=== PATIENT | female | born 1985 | race Caucasian/White ===

== ENCOUNTER 2016-03-24 01:43 | Emergency (ER) | payer OTHER ==
[~2016-03-24] VITALS: Ht 160 cm; Wt 68.0 kg
[~2016-03-24 01:43] MED LIST: ALBUTEROL0.09 MG/A1 INH; AZITHROMYCIN250 MG PO; CLONIDINE0.1 MG PO; DIFLUCAN150 MG PO; HYDROXYZINE50 MG PO; MEDROL DOSEPAK1 PAC PO; MEDROL4 MG PO; PAROXETINE40 MG PO; PROVENTIL0.09 MG/A1 INH; TESSALON PERLE100 MG PO; ZITHROMAX Z-PA250 M1 PO; ZOFRAN4 M1 SL
--- NOTE | 2016-03-24 02:01 | ED CARDIAC/CP/PALPITATIONS ---
History of Present Illness General Chief Complaint: Chest Pain Stated Complaint: CHEST PAIN Source: patient Exam Limitations: patientis sleeping during the history taking and physical exam Vital Signs & Intake/Output Vital Signs & Intake/Output Vital Signs Date Time Temp Pulse Resp B/P Pulse O2 O2 Flow FiO2 Ox Delivery Rate 03/24 212 97 Room Air 03/24 209 97.1 70 18 92/51 97 Room Air Allergies Coded Allergies: NO KNOWN ALLERGIES (01/10/14) Reconcile Medications Albuterol Sulfate (Albuterol Sulfate Hfa) 90 MCG HFA.AER.AD 2 PUFF INH Q4-6 PRN PRN SHORTNESS OF BREATH 90 MCG PER PUFF CLONIDINE HCL (Clonidine) 0.1 MG TABLET 0 PO SEE ADMIN CRITERIA PRN opiate withdrawal 1 tab Q4H x 2 days 1 tab Q6H x 2 days 1 tab Q8H x 2 days 1 tab Q12H x 2 days 1 tab Q24H x 2 days Hydroxyzine Hydrochloride (Hydroxyzine) 50 MG TAB 1 TAB PO Q6P PRN anxiety Ondansetron (Zofran Odt) 4 MG TAB.RAPDIS 1 ODT SL Q6P PRN NAUSEA PAROXETINE HCL (Paroxetine) 40 MG TABLET 1 TAB PO DAILY MENTAL HEALTH ( Reported) Triage Nurses Notes Reviewed? yes HPI: with PMH of Hep C, heroin and cocaine abuse presented to [facility] ED c/o chest pain that started 24 hours ago. Pain radiates to the both are. Patient is in quality. He reported that before the pain started she had a chest discomfort. Even though patient denies cough she was coughing during history taking. Patient denies nausea, vomiting, fever, chills, palpitation. Patient denies any drug use now days, she claims that she is clean and only use methadone as prescribed. However she looks so tired, sleepy, drowsy during history taking. ([facility]) Onset: 2 days Duration: day(s): Timing: recent history Quality/Severity: mild, aching Location: central Radiation: arms Activities at Onset: rest Prior Chest Pain/Card Workup: no prior chest pain, no prior cardiac workup Modifying Factors: Improves With: rest. Nitro Today/Relief: no nitro taken today Aspirin Today: no aspirin today Associated Symptoms: sleepiness LMP (ages 10-50): unknown : No Patient currently breastfeeds: No (YONY JESUS MD) Past History Travel History Traveled to [place] past 21 day No Medical History Neurological: NONE EENT: NONE Cardiovascular: NONE Respiratory: NONE Gastrointestinal: NONE Hepatic: hepatitis C Renal: NONE Musculoskeletal: NONE Psychiatric: NONE Endocrine: NONE Blood Disorders: NONE Cancer(s): NONE MARINATOR/Reproductive: bacterial vaginitis Psychosocial History Who do you live with Family What is your primary language Kazakh (JORDANA NIEVES MD) Medical History Any Pertinent Medical History? see below for history Surgical History Surgical History: non-contributory Psychosocial History Illicit Drug Use: cocaine, heroin, marijuana Family History Hx Contributory? No (YONY JESUS MD) Psychosocial History Daily Tobacco Use Amount/Type: => 5 Cigarettes daily ETOH Use: denies use Illicit Drug Use: PATIENT DENIES ACTIVE USE OF ILLICIT DRUGS (RADHA ESTRADA,LORNA Tsai) Review of Systems Review of Systems Constitutional: Denies: chills, diaphoresis, fever, weakness. Respiratory: Reports: wheezing. Denies: cough, short of breath. Cardiovascular: Reports: chest pain. Denies: orthopena, palpitations, peripheral edema, syncope. GI: Denies: abdominal pain, constipation, diarrhea, nausea, vomiting. Genitourinary: Denies: dysuria. (EZEQUIEL ESTRADA,IST[facility]) Review of Systems EENTM: Reports: no symptoms. Musculoskeletal: Reports: no symptoms. Skin: Reports: no symptoms. Neurological/Psychological: Reports: no symptoms. Hematologic/Endocrine: Reports: no symptoms. Immunologic/Allergic: Reports: no symptoms. All Other Systems: Reviewed and Negative (YONY JESUS MD) Physical Exam Physical Exam General Appearance: patient looks sleepy, cold, and drowsy, does not look in pain Head: atraumatic, normal appearance Eyes: Bilateral: normal appearance, PERRL, EOMI. 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 Skin: intact, normal color, warm/dry Lymphatic: no anterior cervical anton Core Measures ACS in differential dx? No Severe Sepsis Present: No Septic Shock Present: No (YONY JESUS MD) Progress Differential Diagnosis: drug abuse Plan of Care: Orders Procedure Date/time Status EKG 03/24 0145 Active Even though patient is complaining of chest pain, she seems comfortable and pain -free. Patient seems drowsy and sleepy however she denies any current drug abuse. Patient EKG did not show any ST elevation or depression or any other abnormalities suggestive of acute coronary syndrome. She has mild wheezing on examination and was coughing during history taking however the x-ray was negative for any acute pathology. Patient will be observed in the ED, she will be discharge once she looks awake and stable. ([facility]) Diagnostic Imaging: Viewed by Me: Radiology Read. Discussed w/RAD: Radiology Read. CXR Impression: no acute abnormality, no infiltrates, normal size heart Initial ED EKG: normal axis, normal intervals, normal p-waves, normal QRS complex, normal sinus rhythm, no ST T wave changes Rhythm Strip: normal sinus rhythm Hand-Off Endorsed To: LORNA GARCIA MD Endorsed Time: 655 Pending: other (sobriety) (YONY JESUS MD) Comments: 03/24/2016 7:31:55 AM upon my arrival to the room Shala was sleeping comfortably. She awoke easily and complains only of "whole body pain" that began yesterday while sitting in a chair at her house. Physical examination is unremarkable including clear lungs, normal heart tones and nontender abdomen. I see no peripheral edema or rashes. Deep tendon reflexes are intact in all extremities. Patient seems to move easily about the stretcher. Regarding the patient's chest pain presentation, chest x-ray reveals no infiltrates or pneumothorax. Patient's EKG shows no acute ischemic changes to suggest acute coronary syndrome. Regarding her "whole body pain", the etiology of this is somewhat unclear at this point but I feel the patient is stable for outpatient management via her primary care physician. (LORNA GARCIA MD) Departure Departure Condition: Stable Referrals: PATIENT HAS NO PRIMARY CARE DR (PCP/Family) ([facility]) Departure Time of Disposition: 652 Disposition: HOME OR SELF CARE Clinical Impression Primary Impression: Chest wall pain Secondary Impressions: Substance abuse Departure Forms: General Discharge Information Resident Co-Sign Statement Statement: ED Attending supervision documentation- x I saw and evaluated the patient. I have also reviewed all the pertinent lab results and diagnostic results. I agree with the findings and the plan of care as documented in the Resident's documentation. [] I have reviewed the ED Record and agree with the Resident's documentation. [] Additions or exceptions (if any) to the Resident's note and plan are summarized below: [] (YONY JESUS MD) Departure Additional Instructions: Follow-up with your primary care physician this week. Continue your current medications. Return if any concerns or sudden worsening. (LORNA GARCIA MD) Critical Care Note Critical Care Note Critical Care Time: non-applicable (YONY JESUS MD)
--- NOTE | 2016-03-24 03:18 | RADIOLOGY REPORT ---
EXAMINATION: XR PORTABLE CHEST CLINICAL INFORMATION: Chest pain and wheezing. COMPARISON: 04/08/2014 TECHNIQUE: Portable view of the chest was obtained. FINDINGS: The lungs are well expanded. There is no focal consolidation, edema, or effusion. No pneumothorax. The cardiomediastinal silhouette is within normal limits. No acute osseous abnormality. IMPRESSION: Clear lungs.
[2016-03-24 07:34] VITALS: BP 103/60
== END 2016-03-24 07:49 ==
LOC: ERH 01:43
DX: R07.89 Other chest pain (principal); F19.10 Other psychoactive substance abuse, uncomplicated
CPT/HCPCS: 93005; 93010